=== PATIENT | female | born 1970 | race Caucasian/White ===

== ENCOUNTER 2016-10-22 13:55 | Inpatient (IN) ==
[2016-10-22] MEDS ORDERED: diphenhydrAMINE 50 MG/1 ML VIAL IV STA (15:27)
[2016-10-22] MEDS ORDERED: methylPREDNISolone SOD SUC 125 MG/2 ML VIAL IV STA (15:27)
[2016-10-22] MEDS ORDERED: SODIUM CHLORIDE 0.9% 1,000 ML IV ONE (15:27)
[2016-10-22] MEDS ORDERED: KETOROLAC 30 MG/1 ML VIAL IV STA (15:27)
[2016-10-22] MEDS ORDERED: chlorproMAZINE 25 MG/1 ML AMP IM STA (15:27)
--- NOTE | 2016-10-22 15:34 | Emergency Department Note ---
Josse Arriaga Brittany, am scribing for, and in the presence of, Lion Hines MD 14:48. Donny Arriaga Thomas, MD, personally performed the services described in this documentation, ascribed by Soheila Loaiza in my presence, and it is both accurate and complete 532 . Arrival - Arrival ED Nursing Triage Note: c/o being here 4 nights ago for having seizures and having a UTI., states since that time she has been having trouble with closing her eye., states she is having right side headache, right sided numbness, + nausea, patient also states she is having hallucinations., states she is also having pain to the right eye that is becoming worse Mode of Arrival: Ambulatory Limitations: No Limitations Source: Patient, RN Notes Reviewed - History of Present Illness Date of Last Menstrual Period: hyst <Lion Hines - Last Filed: 10/22/16 16:09> <Anabella Muller - Last Filed: 10/23/16 01:53> - Arrival Chief Complaint: Neuro Stated Complaint: numbness on right side of face,cant close eye - History of Present Illness HPI Narrative: Patient is a 46 y/o white female presenting to the ED with c/o right sided headache described as a stabbing sensation, right sided facial numbness, and difficulty closing the right eye which began this morning. Patient reports that she has also been having what she describes as visual hallucinations with which stationary objects and people appear to be moving and one person appears to be 3 or more. Patient notes that yesterday she was having difficulty opening the L eye. She has also had a R earache. Denies anything making symptoms better or worse. Denies sustaining any injuries. Patient states that she was seen and evaluated here at [facility] about 4 nights ago s/p 2 episodes of seizure activity. Patient reports that with the first seizure she fell and hit a table and then with the second seizure she fell into a door frame. On last visit she did have a CT Head performed, she was treated for her seizures and sent home with prescription for Cipro and given Diflucan prior to DC for UTI. Patient states that since DC from here she has taken 2 doses of Cipro and reports that prior to being placed on Cipro she was taking Azithromycin. Patient reports having an episode of nausea/vomiting yesterday. Denies any recent fever,chills, dysuria, or rash. Patient reports a history of Migraines, but denies current headache being similar to typical headaches experienced with Migraines. She states that her current symptoms have caused her to have some anxiety. Patient has no other complaints at this time. (Soheila Loaiza) Patient is a 46 y/o white female presenting to the ED with c/o right sided headache described as a stabbing sensation, right sided facial numbness, and difficulty closing the right eye which began this morning. Patient reports that she has also been having what she describes as visual hallucinations with which stationary objects and people appear to be moving and one person appears to be 3 or more. Patient notes that yesterday she was having difficulty opening the L eye. She has also had a R earache. Denies anything making symptoms better or worse. Denies sustaining any injuries since 4 days ago. Patient states that she was seen and evaluated here at [facility] about 4 nights ago s/p 2 episodes of seizure activity. Patient reports that with the first seizure she fell and hit a table and then with the second seizure she fell into a door frame. On last visit she did have a CT Head performed, she was treated for her seizures and sent home with prescription for Cipro and given Diflucan prior to DC for UTI. Patient states that since DC from here she has taken 2 doses of Cipro and reports that prior to being placed on Cipro she was taking Azithromycin. Patient reports having an episode of nausea/vomiting yesterday. Denies any recent fever,chills, dysuria, or rash. Patient reports a history of Migraines, but denies current headache being similar to typical headaches experienced with Migraines. She states that her current symptoms have caused her to have some anxiety. Patient has no other complaints at this time. (Lion Hines) Allergies/Adverse Reactions: Allergies Allergy/AdvReac Type Severity Reaction Status Date / Time latex Allergy HIVES Verified 10/22/16 14:08 Home Medications: Home Medications Medication Instructions Recorded Confirmed Type Gabapentin Cap/Tab [Neurontin 300 mg PO TID 08/19/16 10/22/16 History Cap/Tab] Promethazine Tab [Phenergan Tab] 25 mg PO TID PRN 08/19/16 10/22/16 History Methocarbamol Tab [Robaxin Tab] 750 mg PO QID PRN #20 tablet 08/20/16 10/22/16 Rx Rizatriptan Benzoate [Rizatriptan] 10 mg PO Q6H PRN 09/14/16 10/22/16 History ALPRAZolam [Xanax] 1 mg PO DAILY PRN 10/18/16 10/22/16 History Amitriptyline [Elavil] 10 mg PO Q6H PRN 10/18/16 10/22/16 History Ciprofloxacin Tab [Cipro Tab] 500 mg PO Q12HR 10 Days 10/18/16 10/22/16 Rx Oxycodone HCl/Acetaminophen 1 tablet PO BID PRN 10/18/16 10/22/16 History [Oxycodone-Acetaminophen 10-325] Review of System - Review of System 12 point system: reviewed and no additional remarkable complaints except as stated - Review of System Constitutional: Absent: chills, fever Eyes: Present: vision change. Absent: discharge, pain, redness Head/Ears/Nose/Throat: Present: earache (R), nasal drainage (clear in color). Absent: sore throat Cardiovascular: Absent: chest pain Gastrointestinal: Present: nausea, vomiting Genitourinary female: Absent: dysuria Skin: Absent: rash Neurological: Present: headache, numbness (R side of the face and shoulder) Psychiatric: Present: anxiety, visual hallucinations <Lion Hines - Last Filed: 10/22/16 16:09> Medical,Surgical,& Family Hx - Medical History Psychological: History of: Anxiety Disorders Neurology: History of: Migraine (takes imitrex, last one six months ago), Seizures (Last seizure was 08/02/2014) Gastrointestinal: History of: Hepatitis (Hepatitis C) Musculoskeletal: History of: Musculoskeletal Problems (degenerative disc disease ) Reproductive: History of: Ovarian Cysts - Surgical History Reproductive Surgeries: Surgical HX of;: Breast Surgery (BENIGN TUMORS REMOVED) - Social History Smoking Status: Current every day smoker Frequency of Alcohol Use: None Type of Drug Use: None <Lion Hines - Last Filed: 10/22/16 16:09> Exam - General General appearance: alert, in no apparent distress - Head Head exam: Present: atraumatic, normocephalic - Eye Eye exam: Present: PERRL, EOMI, other (L anterior chamber abnormality, not clear if hyphema or hyperpigmentation). Absent: conjunctival injection, periorbital swelling, periorbital tenderness - ENT ENT exam: Present: normal oropharynx, mucous membranes moist, TM's normal bilaterally - Neck Neck exam: Present: full ROM, trachea midline - Chest Chest inspection: Present: symmetric chest wall rise - Respiratory Respiratory exam: Present: normal lung sounds bilaterally - Cardiovascular Cardiovascular exam: Present: regular rate, normal rhythm, normal heart sounds - Abdominal Exam Abdominal exam: Present: soft, normal bowel sounds. Absent: tenderness - Extremities Exam Extremities exam: Present: normal capillary refill. Absent: pedal edema, calf tenderness - Neurological Exam Neurological exam: Present: alert, oriented X3. Absent: CN II-XII intact (R facial paralysis involving the forehead), motor sensory deficit - Psychiatric Psychiatric exam: Present: normal affect, normal mood - Skin Skin exam: Present: warm, dry, normal color. Absent: rash <Lion Hines - Last Filed: 10/22/16 16:09> Vital Signs: Vital Signs Temperature 98.6 F 10/22/16 20:18 Pulse Rate 86 10/22/16 20:18 Respiratory Rate 20 10/22/16 22:55 Blood Pressure 134/80 10/22/16 20:18 O2 Sat by Pulse Oximetry 100 10/22/16 17:42 Course - Reevaluation(s) Time: 16:09 <Lion Hines - Last Filed: 10/22/16 16:09> <Anabella Muller - Last Filed: 10/23/16 01:53> Course Narrative: will admit for rule out stroke. pt has had recent trauma, med changes, hallucinations and questionable involvement of forehead muscles. could be stroke. will admit for further work up. (Anabella Muller) - Reevaluation(s) Reevaluation #1: sign out to 4p-2a EDP, Dr Leigh (Lion Hines) Results - Labs CBC & BMP: 10/22/16 16:00 10/22/16 16:00 <Anabella Muller - Last Filed: 10/23/16 01:53> Disposition <Lion Hines - Last Filed: 10/22/16 16:09> Case discussed with: patient <Anabella Muller - Last Filed: 10/23/16 01:53> Clinical Impression: Facial droop Disposition: Still a Patient Condition: Stable
[2016-10-22] MEDS ORDERED: diphenhydrAMINE 50 MG/1 ML VIAL ONE (15:49)
[2016-10-22] MEDS ORDERED: KETOROLAC 30 MG/1 ML VIAL ONE (15:49)
[2016-10-22] MEDS ORDERED: methylPREDNISolone SOD SUC 125 MG/2 ML VIAL ONE (15:50)
--- NOTE | 2016-10-22 15:59 | CT Report ---
History: Headache. Right-sided facial numbness. Can't close right eye Date: 10/22/2016 Study: CT head without contrast Comparison exam: CT head performed through the Emergency Room [address] sections were obtained through the head without IV contrast. The ventricles are midline in position without evidence of hydrocephalus. There is no mass or parenchymal hemorrhage. There is no gross CT evidence of acute cortical stroke. There is no extra-axial hematoma. The partially visualized paranasal sinuses and mastoid air cells are clear. There is no acute abnormality of the calvarium. Impression: No acute intracranial process. No significant interval change This CT exam was performed using one or more the following dose reduction techniques: Automated exposure control, adjustment of the MA and/or KV according to patient size, or use of iterative reconstruction technique. PROCEDURE INTERPRETED AT [facility] DEPARTMENT OF RADIOLOGY Final Report Signed by: Dr. Azalea Arroyo
[2016-10-22 16:16] LABS: Basophils # 0.1 10*3/uL (0.0-0.2); Basophils % 0.9 % (0.0-0.8); Eosinophils # 0.2 10*3/uL (0.0-0.87); Eosinophils % 2.9 % (0.00-10.9); Hematocrit 38.9 VOL% (35.7-47.0); Hemoglobin 13.2 GM/DL (12.0-16.0); Immature Granulocytes % 0.4 %; Immature Granulocytes Absolute 0.03 #; Lymphocytes # 2.8 10*3/uL (1.4-4.0); Lymphocytes % 34.7 % (21.3-54.2); Mean Corpuscular HGB Conc 33.9 GM/DL (32-36); Mean Corpuscular Hemoglobin 30 PG (27-34); Mean Corpuscular Volume 89.4 FL (87-102); Mean Platelet Volume 10.6 FL (9.6-12.0); Monocytes # 0.6 10*3/uL (0.11-0.8); Neutrophils # 4.3 10*3/uL (1.4-7.4); Neutrophils % 54.1 % (38.7-73.9); Platelet Count 236 T/CUMM (130-400); Red Blood Count 4.35 MC/CUMM (3.8-5.5); Red Cell Distribution Width 12.8 % (9.3-17.3)
[2016-10-22 16:34] LABS: Blood Urea Nitrogen 5 MG/DL (7-18); Calcium 8.8 MG/DL (8.5-10.1); Glucose 85 MG/DL (74-106); Osmolality,Calculated 276.3 MOS/KG (273-304); Potassium 4.1 MMOL/L (3.5-5.1); Sodium 141 MMOL/L (136-145)
[2016-10-22] MEDS ORDERED: MORPHINE 2 MG/1 ML SYRINGE IV STA (16:52)
[2016-10-22 17:23] LABS: Sedimentation Rate-Westergren 35 MM/HR (0-20)
[2016-10-22] MEDS ORDERED: traZODone 50 MG TABLET PO PRN (17:35)
[2016-10-22] MEDS ORDERED: ZALEPLON 5 MG CAPSULE PO PRN (17:35)
[2016-10-22] MEDS ORDERED: MORPHINE 2 MG/1 ML SYRINGE IV PRN (17:35)
[2016-10-22] MEDS ORDERED: ACETAMINOPHEN 325 MG TABLET PO PRN (17:35)
[2016-10-22] MEDS ORDERED: ONDANSETRON 4 MG/2 ML VIAL IV PRN (17:35)
--- NOTE | 2016-10-22 17:41 | Hospitalist History & Physical ---
Assessment and Plan (1) Facial paresthesia Status: Acute Assessment and plan: We will consult neurology for further evaluation. We will order MRI in a.m. Current Visit: Yes (2) Nicotine dependence Status: Acute Assessment and plan: Patient reports that she is a current smoker. Discussed in great detail the merits associated with smoking cessitation. The patient reports that she is "not ready to stop smoking as of yet". Nicotine patch has been offered for the inpatient admission. Current Visit: Yes Qualifiers: Nicotine product type: cigarettes (3) Seizure disorder Status: Acute Assessment and plan: Upon review of the patient's home medication list, the patient is currently on no antiseizure regimen. This is very concerning to me seeing as though if the patient reports "reoccurring seizures". We will start Keppra prophylactically and monitor closely. We will consult neurology to evaluate. 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 In addition, the patient has reported significant right sided facial paresthesia. We will start artificial teardrops maintain moisture to the right eye. A neurology consultation from requested to evaluate. Current Visit: Yes Qualifiers: Lagophthalmos type: unspecified type History of Present Illness Chief complaint: numbness to right side of face; inability to close the right eye History of present illness: This is a 46-year-old female that presented to the ED at [facility] this afternoon for the evaluation of numbness affecting the right side of her face and an inability to close her right eye. Patient has a medical history significant for seizure disorder, anxiety, depression, migraine headache, Hepatitis C Virus, degenerative disc disease, and ovarian cyst. Patient has a surgical history significant for lumpectomy and hysterectomy. Patient reported the onset of symptoms earlier this morning. She noted a gradual onset of a right-sided headache that she described as a stabbing sensation with right-sided facial numbness and difficulty closing her right eye. In addition, the patient reported that she was recently seen at [facility] on October 18, 2016 for seizure activity. During this encounter, the patient was diagnosed with a urinary tract infection and told to continue her muscle relaxers. The patient reports since the subsequent discharge that she has been experiencing visual hallucinations. Her symptoms became severe prompting her to present to the ED for further evaluation. The patient was seen and assessed at the time of ED presentation labs were obtained which were essentially remarkable for chloride 113, BUN 5, and ESR 35 CT head without contrast was unremarkable for the presence of any acute intracranial processes. After brief discussion with both Dr. Leigh and Dr. Mitchell, patient will be admitted to the hospitalist service for continuation of care. Home medications have been reviewed and will be reconciled by Dr. Mitchell. CODE STATUS discussed; patient is FULL CODE. Home Medications Medication Instructions Recorded Confirmed Type Gabapentin Cap/Tab [Neurontin 300 mg PO TID 08/19/16 10/22/16 History Cap/Tab] Promethazine Tab [Phenergan Tab] 25 mg PO TID PRN 08/19/16 10/22/16 History Methocarbamol Tab [Robaxin Tab] 750 mg PO QID PRN #20 tablet 08/20/16 10/22/16 Rx Rizatriptan Benzoate [Rizatriptan] 10 mg PO Q6H PRN 09/14/16 10/22/16 History ALPRAZolam [Xanax] 1 mg PO DAILY PRN 10/18/16 10/22/16 History Amitriptyline [Elavil] 10 mg PO Q6H PRN 10/18/16 10/22/16 History Ciprofloxacin Tab [Cipro Tab] 500 mg PO Q12HR 10 Days 10/18/16 10/22/16 Rx Oxycodone HCl/Acetaminophen 1 tablet PO BID PRN 10/18/16 10/22/16 History [Oxycodone-Acetaminophen 10-325] Allergies Allergy/AdvReac Type Severity Reaction Status Date / Time latex Allergy HIVES Verified 10/22/16 14:08 Medical,Surgical,& Family Hx - Medical History Psychological: History of: Anxiety Disorders Neurology: History of: Migraine (takes imitrex, last one six months ago), Seizures (Last seizure was 08/02/2014) Gastrointestinal: History of: Hepatitis (Hepatitis C) Musculoskeletal: History of: Musculoskeletal Problems (degenerative disc disease ) Reproductive: History of: Ovarian Cysts - Surgical History Reproductive Surgeries: Surgical HX of;: Breast Surgery (BENIGN TUMORS REMOVED) - Social History Smoking Status: Current every day smoker Have you smoked in the last 12 months: Yes Time spent discussing smoking cessation with patient: 3 to 10 minutes Frequency of Alcohol Use: None Type of Drug Use: None Marital Status: Lives With:: Spouse Functional capacity: independent ambulation Exam - Constitutional Vitals: Period Temp Pulse Resp BP Sys/Madden Pulse Ox Last 24 Hr 99.1 F-99.1 F 107-107 16-18 125-125/89-89 97 General appearance: normal weight, no acute distress - Head Head exam: Present: normal inspection, normocephalic, atraumatic - Eye Eye exam: Present: periorbital swelling (Periorbital swelling noted to the right eye; lagophthalmos noted right eye), other Pupils: Present: ESTRELLA - ENT ENT exam: Present: normal exam, normal external ear exam, normal oropharynx - Neck Neck exam: Present: normal inspection. Absent: lymphadenopathy, meningismus, tenderness, thyromegaly - Respiratory Respiratory exam: Present: clear to auscultation bilaterally. Absent: rales, rhonchi, stridor, wheezes - Cardiovascular Cardiovascular exam: Present: regular rate and rhythm. Absent: carotid bruit, diastolic murmur, gallop, JVD, rubs, systolic murmur - GI/Abdominal GI/Abdominal exam: Present: normal bowel sounds, soft - Extremities Exam Extremities exam: Present: normal inspection, normal capillary refill, full ROM - Back Exam Back exam: Present: normal inspection - Neurological Exam Neurological exam: Present: alert, oriented X3, CN II-XII intact, other (Right- sided facial drooping; complaints of paresthesia upon examination) - Psychiatric Psychiatric exam: Present: normal affect, normal mood - Skin Skin exam: Present: normal color, warm, dry Results - Labs CBC & BMP: 10/22/16 16:00 10/22/16 16:00 Lab Results: I have reviewed the past 24 hour labs Quality Measures - Stroke Onset of Symptoms Date: 10/22/16
[2016-10-22] MEDS ORDERED: MORPHINE 2 MG/1 ML SYRINGE ONE (17:46)
[2016-10-22] MEDS ORDERED: POLYVINYL ALCOHOL 1.4% OPH SOLN 15 ML BOTTLE RIGHT EYE PRN (17:48)
[2016-10-22] MEDS ORDERED: PNEUMOCOCCAL VACCINE (23 VALENT) 0.5 ML VIAL IM ONE (18:39)
[2016-10-22] MEDS: NICOTINE 21 MG/24 HR PATCH TRANSDERM PRN (20:20)
[2016-10-22] MEDS: MINERAL OIL/PETROLATUM OPH OINT 3.5 GM TUBE RIGHT EYE SCH (20:20)
[2016-10-22] MEDS: SODIUM CHLORIDE 0.9% 1,000 ML IV SCH (20:26)
[2016-10-22] MEDS: DOCUSATE SODIUM 100 MG CAPSULE PO SCH (20:26)
[2016-10-23 03:38] LABS: Basophils % 0.2 % (0.0-0.8); Hematocrit 34.9 VOL% (35.7-47.0); Hemoglobin 11.3 GM/DL (12.0-16.0); Immature Granulocytes % 0.5 %; Immature Granulocytes Absolute 0.03 #; Lymphocytes # 0.7 10*3/uL (1.4-4.0); Lymphocytes % 11.4 % (21.3-54.2); Mean Corpuscular HGB Conc 32.4 GM/DL (32-36); Mean Corpuscular Hemoglobin 29 PG (27-34); Mean Corpuscular Volume 90.4 FL (87-102); Mean Platelet Volume 11.2 FL (9.6-12.0); Monocytes % 0.5 % (1.7-12.7); Neutrophils # 5.2 10*3/uL (1.4-7.4); Neutrophils % 87.4 % (38.7-73.9); Platelet Count 207 T/CUMM (130-400); Red Blood Count 3.86 MC/CUMM (3.8-5.5); Red Cell Distribution Width 12.9 % (9.3-17.3); White Blood Count 5.9 T/CUMM (4-12)
[2016-10-23 05:00] LABS: Albumin 3.1 G/DL (3.4-5.0); Bilirubin,Total 0.7 MG/DL (0.2-1.0); Calcium 8.3 MG/DL (8.5-10.1); Magnesium 1.9 MG/DL (1.8-2.4); Osmolality,Calculated 281.4 MOS/KG (273-304); Potassium 4.4 MMOL/L (3.5-5.1); Risk Ratio 3.46; Thyroid Stimulating Hormone 0.471 uIU/ml (0.358-3.74); Total Protein 6.3 G/DL (6.4-8.3); VLDL CHOLESTEROL 9.8 MG/DL
[2016-10-23] MEDS: SODIUM CHLORIDE 0.9% 1,000 ML IV SCH ×2 (05:51→14:41)
[2016-10-23] MEDS: PANTOPRAZOLE 40 MG TABLET PO SCH (08:31)
[2016-10-23] MEDS: DOCUSATE SODIUM 100 MG CAPSULE PO SCH ×2 (09:30→20:53)
[2016-10-23] MEDS ORDERED: METOCLOPRAMIDE 10 MG/2 ML VIAL IV ONE (10:24)
[2016-10-23] MEDS ORDERED: PROCHLORPERAZINE 10 MG TABLET PO PRN (10:24)
[2016-10-23] MEDS ORDERED: diphenhydrAMINE 50 MG/1 ML VIAL IV ONE (10:24)
[2016-10-23] MEDS ORDERED: SUMAtriptan 6 MG/0.5 ML VIAL SUBCUT ONE (10:24)
[2016-10-23] MEDS ORDERED: LORazepam 1 MG TABLET PO ONE (10:26)
--- NOTE | 2016-10-23 10:49 | Hospitalist Progress Note ---
Assessment and Plan (1) Seizure disorder Status: Acute Assessment and plan: Workup in progress. Keppra was not started. Should patient is on Neurontin for seizures by Dr. Multani at [place]. MRI brain ordered. Neurology consult pending. Current Visit: Yes (2) Minor head injury Status: Acute Assessment and plan: The patient reports a fall at home. Current Visit: Yes Qualifiers: Encounter type: initial encounter Qualified Code(s): S00.90XA - Unspecified superficial injury of unspecified part of head, initial encounter (3) Facial paresthesia Status: Acute Current Visit: Yes (4) Nicotine dependence Status: Chronic Current Visit: Yes Qualifiers: Nicotine product type: cigarettes Substance use status: uncomplicated Qualified Code(s): F17.210 - Nicotine dependence, cigarettes, uncomplicated (5) Lagophthalmos of right eye Status: Acute Current Visit: Yes Qualifiers: Lagophthalmos type: unspecified type (6) Facial droop Status: Acute Assessment and plan: Follow-up neurology consult and MRI of the brain. Rule out bells palsy vs complex migraine vs stroke vs post seizure deficit. Current Visit: Yes Hospitalist: Subjective Interval history: Patient seen and examined. No acute events overnight. Case discussed with nursing staff. Labs reviewed. She complains of a headache- it is right-sided. The patient's significant other was present at the bedside at the time of my evaluation. She reports being treated for urinary tract infection with Cipro recently. I reviewed the cultures and they have been negative. She reports seeing Dr. Multani at [place], neurologist. And Dr. Gurrola as primary care physician. She reports a history of seizures in the past and is treated with Neurontin. She also has migraine headaches treated with Topamax, as well as chronic back pain treated with opioid narcotics. She has not had an MRI or EEG in the past. Exam - Constitutional Vitals: Period Temp Pulse Resp BP Sys/Madden Pulse Ox Last 24 Hr 97.8 F-99.1 F 80-107 16-22 95-136/54-89 95-100 Exam: Constitutional System: No distress. No tremulousness. Complains of headache Head: Normocephalic, atraumatic. Ears, Nose and Throat System: No pain or tenderness. No epistaxis or discharge Eyes System: Pupils equal, round, and reactive. Extraocular muscles intact. Neck: Supple, without adenopathy, No jugular venous distention. No thyromegaly, neck mass, or prior surgery apparent. Respiratory System: Chest clear to auscultation. Cardiovascular System: Heart with regular rate and rhythm. No murmur. GI System: Abdomen soft, nontender. Normo active bowel sounds present. Musculoskeletal System: limbs with no pedal edema. Full distal pulses. Normal capillary refill. Neurological System: No discernable sensory deficit. No aphasia. Left-sided facial droop noted; questionable Vang's palsy. Psychiatric System: Conversation is rational Results - Labs CBC & BMP: 10/23/16 02:16 10/23/16 02:16 Lab Results: I have reviewed the past 24 hour labs Quality Measures - Stroke Onset of Symptoms Date: 10/22/16
[2016-10-23] MEDS ORDERED: ALPRAZolam 0.5 MG TABLET PO PRN (10:50)
[2016-10-23] MEDS ORDERED: RIZATRIPTAN ODT 5 MG TABLET PO PRN (10:50)
[2016-10-23] MEDS ORDERED: AMITRIPTYLINE 10 MG TABLET PO PRN (10:50)
[2016-10-23] MEDS ORDERED: PROMETHAZINE 25 MG TABLET PO PRN (10:50)
[2016-10-23] MEDS ORDERED: METHOCARBAMOL 750 MG TABLET PO PRN (10:50)
--- NOTE | 2016-10-23 12:59 | Neurology Consult Note ---
History of Present Illness History of present illness: 46 years old right-handed white lady with past medical history significant for seizure disorder since age 15, anxiety, depression, migraine headaches, hepatitis C virus, DJD, ovarian cyst, chronic smoker admitted to the hospital with right facial weakness as well as seizures evaluation. She developed right facial weakness 2 days ago. Patient reports she cannot close her eye. She also has liquid coming out of the right angle of the mouth when she drinks something. Patient reported that she has had history of seizures since age 15. At the present time seizure frequency is 3-4 per week. She has seen Dr. tate in the past but has not seen him in the last 1 year or so because of insurance issue. She reported seizure characterized as generalized tonic-clonic activity. She reported that she has had workup done in the past but none of them are available at this time here. She is not on any major seizure medication either. MRI of the brain reveals no acute or chronic pathology. Home Medications Medication Instructions Recorded Confirmed Type Gabapentin Cap/Tab [Neurontin 300 mg PO TID 08/19/16 10/23/16 History Cap/Tab] Promethazine Tab [Phenergan Tab] 25 mg PO TID PRN 08/19/16 10/23/16 History Methocarbamol Tab [Robaxin Tab] 750 mg PO QID PRN #20 tablet 08/20/16 10/23/16 Rx Rizatriptan Benzoate [Rizatriptan] 10 mg PO Q6H PRN 09/14/16 10/23/16 History ALPRAZolam [Xanax] 1 mg PO DAILY PRN 10/18/16 10/23/16 History Amitriptyline [Elavil] 10 mg PO Q6H PRN 10/18/16 10/23/16 History Ciprofloxacin Tab [Cipro Tab] 500 mg PO Q12HR 10 Days 10/18/16 10/23/16 Rx Oxycodone HCl/Acetaminophen 1 tablet PO BID PRN 10/18/16 10/23/16 History [Oxycodone-Acetaminophen 10-325] Allergies Allergy/AdvReac Type Severity Reaction Status Date / Time latex Allergy HIVES Verified 10/22/16 14:08 12 point system: reviewed and no additional remarkable complaints except as stated Medical,Surgical,& Family Hx - Medical History Psychological: History of: Anxiety Disorders Neurology: History of: Migraine (takes imitrex, last one six months ago), Seizures (Last seizure was 08/02/2014) Gastrointestinal: History of: Hepatitis (Hepatitis C) Musculoskeletal: History of: Musculoskeletal Problems (degenerative disc disease ) Reproductive: History of: Ovarian Cysts - Surgical History Reproductive Surgeries: Surgical HX of;: Breast Surgery (BENIGN TUMORS REMOVED) - Social History Smoking Status: Current every day smoker Frequency of Alcohol Use: None Type of Drug Use: None Exam - Constitutional Vitals: Period Temp Pulse Resp BP Sys/Madden Pulse Ox Last 24 Hr 97.8 F-99.1 F 80-107 16-22 95-136/54-89 95-100 Exam: GENERAL: Patient is in no acute distress. NECK: Neck is supple. There is no JVD. No carotid bruits present. No thyroid masses. CVS: First and second heart sounds are normal. There is no S3 present. Regular rate and rhythm. RESPIRATORY: Lungs are clear to auscultation without any rales or rhonchi. ABDOMEN: Soft and non-tender. Bowel sounds are present. There is no hepatosplenomegaly. EXT: There is no palpable edema. Peripheral pulses are present. Skin: No rashes Central Nervous system: General: Alert, awake and Oriented x 3 Speech: Fluent Comprehension: Intact and normal Facial expressions: Normal Cranial Nerves: CN1/Olfactory: Normal CN II/ Optic: Normal, Visual Simeon unreliable CN III, and : ESTRELLA & EOMI CN V: Normal & intact CN VII: Right lower motor neuron type facial weakness CNVIII: Normal CN XI/X/XI/XII: Intact and Normal Motor: Bulk and Tone is normal. Strength in the right 5/5 Strength in the left 5/5 Sensory: Grossly intact for all the modalities of PP, LT and temp sense Reflexes: 1+ and symmetrical Cerebellar function: Normal finger to nose and heel to stout testing. Toes: Equivocal Gait: Normal heel to heel and toe to toe and tandem walk. Results - Labs CBC & BMP: 10/23/16 02:16 10/23/16 02:16 Assessment and Plan (1) Vang's palsy Status: Acute Assessment and plan: Medrol Dosepak Acyclovir 400 mg 3 times daily for 7 days Keep moisture to the right eye Current Visit: Yes (2) History of migraine Status: Acute Current Visit: Yes (3) Seizure disorder Status: Acute Assessment and plan: Start Depakote 500 mg. P.o. twice daily Current Visit: Yes (4) Nicotine dependence Status: Chronic Assessment and plan: Counseled regarding cessation of his smoking Start and continue baby aspirin a day Thank you for the consult Current Visit: Yes Qualifiers: Nicotine product type: cigarettes Substance use status: uncomplicated Qualified Code(s): F17.210 - Nicotine dependence, cigarettes, uncomplicated
--- NOTE | 2016-10-23 13:15 | Magnetic Resonance Report ---
History: Seizures. Facial paresthesias Date: 10/23/2016 Study: MRI brain with and without IV contrast Comparison exam: CT head 10/22/2016 The brain was imaged in 3 planes on the 1.5 Danielle magnet with and without IV contrast, to include diffusion, T2, FLAIR, and pre-and postcontrast T1-weighted sequences. 13 ml Dotarem contrast was given IV without immediate complication. The ventricles are midline in position without evidence of hydrocephalus. There is no Chiari I malformation. There is no gross pituitary mass. There is no evidence of acute ischemia on the diffusion sequence. There is no brain mass or abnormal brain parenchymal enhancement. There is a small amount of patchy ill-defined increased FLAIR and T2 signal in the periventricular white matter without mass effect or enhancement compatible with changes of small vessel disease. There is a normal flow void in the superior sagittal sinus. There is no gross flow abnormality in the knik of [place] area. There is no obvious cerebellopontine angle mass. There is no extra-axial hematoma. There is some minimal mastoid effusion on the right. There is a rounded area polyp or mucous retention cyst in the right maxillary sinus. Impression: No acute intracranial process. Mild right mastoiditis. Chronic right maxillary sinus disease. Mild periventricular small vessel disease PROCEDURE INTERPRETED AT [facility] DEPARTMENT OF RADIOLOGY Final Report Signed by: Dr. Azalea Arroyo
[2016-10-23] MEDS ORDERED: methylPREDNISolone 4 MG TABLET PO SCH (13:30)
[2016-10-23] MEDS: GABAPENTIN 300 MG CAPSULE PO SCH ×2 (14:39→20:51)
[2016-10-23] MEDS: ACYCLOVIR 200 MG CAPSULE PO SCH ×2 (14:39→20:52)
[2016-10-23] MEDS: DIVALPROEX 500 MG TABLET PO SCH ×2 (14:39→20:51)
[2016-10-23] MEDS: oxyCODONE/ACETAMINOPHEN 5-325 MG TABLET PO PRN ×2 (14:43→23:28)
[2016-10-23] MEDS: methylPREDNISolone 4 MG TABLET PO SCH (20:50)
[2016-10-23] MEDS: NICOTINE 21 MG/24 HR PATCH TRANSDERM PRN (20:50)
[2016-10-23] MEDS: MINERAL OIL/PETROLATUM OPH OINT 3.5 GM TUBE RIGHT EYE SCH (20:54)
[2016-10-24 07:56] VITALS: BP 110/64
[2016-10-24] MEDS: ACYCLOVIR 200 MG CAPSULE PO SCH (08:45)
[2016-10-24] MEDS: PANTOPRAZOLE 40 MG TABLET PO SCH (08:45)
[2016-10-24] MEDS: methylPREDNISolone 4 MG TABLET PO SCH (08:45)
[2016-10-24] MEDS: DOCUSATE SODIUM 100 MG CAPSULE PO SCH (08:45)
[2016-10-24] MEDS: DIVALPROEX 500 MG TABLET PO SCH (08:45)
[2016-10-24] MEDS: GABAPENTIN 300 MG CAPSULE PO SCH (08:45)
[2016-10-24] MEDS: oxyCODONE/ACETAMINOPHEN 5-325 MG TABLET PO PRN (08:51)
--- NOTE | 2016-10-24 10:32 | Discharge Summary ---
<Neris Angeles - Last Filed: 10/24/16 09:51> Hospital Course - Hospital Course Hospital Course: Ms. Deras is a 46 year old white female with a past medical history of seizure disorder, anxiety and depression, migraines, hepatitis C, ovarian cysts, and degenerative disc disease presented to the ED on 10/22 for evaluation of right- sided facial numbness and inability to close her right eye. Pt. is a current smoker. Pt. stated the weakness started prior to arrival. Patient reported a headache in conjunction with the other symptoms as well as visual hallucinations. Pt. had been recently seen in the ED for seizure like activity on 10/18 where she was also treated for an UTI with Cipro. Pt. noted that there had been an increase in seizure activity (3-4 per week). She was followed by Dr. Multani at [facility] but due to insurance issues had not been seen in over a year. In the ED for this current admission, patient was noted to have a ESR of 35 but other labs were unremarkable. CT revealed no acute process noted. The patient was admitted to the hospitalist service for close monitoring. Neurology was consulted to evaluate. MRI was ordered which revealed no acute or chronic pathology. Pt. was started on Depakote 500 mg BID and a baby asa. Pt. was also treated with po steroids and Acyclovir. Pt's vital signs and labs are stable. Pt. has reached maximum benefit of hospital stay and can be discharged home. Further discharge instructions to follow per Dr. Anderson. I have personally seen and examined this patient today. I agree with the below note as prepared by the advanced practice provider. I agree with the assessment and plan. The patient's workup for stroke was negative. MRI was reviewed. Neurology consult also reviewed. Appreciate Dr. Paulson's input. The patient will be discharged home today with new prescriptions for acyclovir, Medrol Dosepak, Depakote, aspirin. She will need to follow-up with Dr. Gurrola, her primary care physician in 1 week. Discharge Plan - Discharge Data Disposition: Disch To Home/Self Care - Discharge Medications New Acyclovir Cap/Tab [Zovirax Cap/Tab] 400 mg PO TID #42 capsule Divalproex [Depakote] 500 mg PO BID #60 tablet methylPREDNISolone DOSEPAK [Medrol Dosepak] 4 mg PO DIRECTED #1 pack Nicotine 21 mg/24 Hr Patch [Nicoderm CQ 21 mg/24 hr Patch] 1 patch TRANSDERM DAILY PRN patch PRN Reason: Nicotine Withdrawal Aspirin EC Tab 81 mg PO DAILY #100 tablet Mineral Oil/Petrolat Oph Oint [Refresh PM Oph Oint] 1 applic RIGHT EYE BEDTIME applic Polyvinyl Alcohol 1.4% Oph Clarissa [Artificial Tears Oph Soln] 1 drop RIGHT EYE TID PRN bottle PRN Reason: Dry Eyes Continue Methocarbamol Tab [Robaxin Tab] 750 mg PO QID PRN #20 tablet PRN Reason: Muscle Pain ALPRAZolam [Xanax] 1 mg PO DAILY PRN PRN Reason: Migraine Headache Promethazine Tab [Phenergan Tab] 25 mg PO TID PRN PRN Reason: Migraine Headache Gabapentin Cap/Tab [Neurontin Cap/Tab] 300 mg PO TID Rizatriptan Benzoate [Rizatriptan] 10 mg PO Q6H PRN PRN Reason: Headache Amitriptyline [Elavil] 10 mg PO Q6H PRN PRN Reason: Headache Oxycodone HCl/Acetaminophen [Oxycodone-Acetaminophen 10-325] 1 tablet PO BID PRN PRN Reason: Pain Discontinued Ciprofloxacin Tab [Cipro Tab] 500 mg PO Q12HR 10 Days - Follow Up or Referral Follow Up: Maurice Gurrola MD [Physician] - Priscilla Multani [REFERRING DOCTOR/PRACTITIONER] - - Forms/Instructions Exam - Constitutional Vitals: Period Temp Pulse Resp BP Sys/Madden Pulse Ox Last 24 Hr 97.8 F-98.9 F 92-108 18-21 110-135/64-83 96-100 DS: Provider Date of admission: 10/22/16 16:48 Primary care physician: . No PCP Attending physician on admission: Cedric Peralta MD Consults: 10/22/16 17:35 Consult to Physician [CONS] Routine Comment: Consulting Provider: Tim Paulson When should Consulting Provider be notified: In am 10/22/16 18:37 Consult to Dietitian [CONS] Routine Reason for Dietitian: Other Consult Comment: unsure of weight loss ??10 lbs Discharging clinician: Neris Angeles NP <Arron Anderson - Last Filed: 10/24/16 10:46> Hospital Course - Time spent with patient Time with patient DS: Greater than 30 minutes (Total discharge time for this patient, including [id number] time, clinical documentation, medication reconciliation, and discharge planning was 42 minutes.) Diagnosis - Discharge Diagnosis (1) Seizure disorder Status: Chronic (2) Minor head injury Status: Resolved (3) Facial paresthesia Status: Acute (4) Nicotine dependence Status: Chronic (5) Lagophthalmos of right eye Status: Acute (6) Facial droop Status: Acute (7) Vang's palsy Status: Acute Discharge Plan - Discharge Data Condition at Discharge: Stable Discharge Diet: advance to your usual diet Activity: resume usual activities as tolerated Hygiene: no restrictions Weight Bearing at Discharge: full weight bearing Driving: no restrictions Contact your physician if you experience:: fever over 101 DS: Provider Expected date of discharge: 10/24/16
== END 2016-10-24 11:02 | disposition home or self-care (01) | DRG 74 ==
LOC: N.ED 13:55 → N.EDINP 16:48 → SUATTDRO 16:48 → N.EDINP 18:00 → N.4E 18:21
PROVIDERS: ADMIT Family Medicine; ATTEND Family Medicine